=== PATIENT | female | born 2000 | race Caucasian/White ===

== ENCOUNTER 2024-08-23 19:33 | Emergency (ER) | payer OTHER, SELFPAY ==
[2024-08-23 19:36] VITALS: BP 108/70; PULSE 87; RESP 16; TEMP 37; O2SAT 98; BMI 26.6
[2024-08-23 20:05] LABS: Appearance Urine UA CLEAR; Bilirubin Urine UA NEGATIVE (NEGATIVE); Color Urine UA YELLOW; Glucose Urine UA NEGATIVE (Negative); Ketones Urine UA NEGATIVE (NEGATIVE); Leukocyte Esterase Urine UA 1+ (NEGATIVE); Nitrite Urine UA NEGATIVE (Negative); Occult Blood Urine UA 2+ (Negative); Protein Urine UA NEGATIVE (Negative); Specific Gravity Urine UA 1.025 (1.000-1.035); Urobilinogen Urine UA 0.2 E.U./dL (0.2)
[2024-08-23 20:19] LABS: Bacteria Urine Many (>30); Culture Indicated Urine Specimen Cultured; RBC Urine 0-1/HPF (0-5/HPF); Squamous Epithelial Cell Urine 1-5 /HPF (0-5/HPF); Urine Volume 10mL (spun); WBC Urine 1-5/HPF (0-5/HPF)
[2024-08-23 21:56] LABS: Add Manual Diff / Slide Review NO; Basophils Absolute Auto 100 /uL (0-100); Basophils Percent Auto 0.7 % (0-2); Eosinophils Absolute Auto 300 /uL (0-450); Eosinophils Percent Auto 4.5 % (2-4); Hematocrit 37.6 % (36-46); Hemoglobin 12.2 g/dL (12.0-16.0); Lymphocytes Absolute Auto 1900 /uL (1100-4500); Lymphocytes Percent Auto 25.3 % (25-40); Mean Corpuscular HGB Conc 32.5 % (30-36); Mean Corpuscular Hemoglobin 28.1 PG (26-34); Mean Corpuscular Volume 86.5 fL (80-100); Monocytes Absolute Auto 900 /uL (0-900); Monocytes Percent Auto 11.8 % (3-14); Neutrophils Absolute Auto 4300 /uL (1500-7000); Neutrophils Percent Auto 57.7 % (50-75); Platelet Count 299 X10^3/uL (150-400); Red Blood Cell Count 4.35 X10^6/uL (4.0-5.2); Red Cell Distribution Width 13.5 % (11.6-14.8); White Blood Cell Count 7.5 X10^3/uL (4.5-11.0)
[2024-08-23 22:02] LABS: Alanine Aminotransferase 24 IU/L (<35); Albumin 4.1 g/dL (3.5-5.0); Albumin Globulin Ratio 1.1 (1.0-2.8); Alkaline Phosphatase 76 U/L (38-126); Aspartate Aminotransferase 25 IU/L (14-36); BUN Creatinine Ratio 17.9 (6-22); Bilirubin Total 0.3 mg/dL (0.2-1.3); Blood Urea Nitrogen 14 mg/dL (7-17); Calcium 8.7 mg/dL (8.4-10.2); Carbon Dioxide 24 mmol/L (22-32); Chloride 105 mmol/L (98-107); Estimated Glomerular Filt Rate > 60 mL/min (>60); Globulin 3.9 g/dL (1.7-4.1); Glucose 105 mg/dL (70-100); HEMOLYSIS < 15 (0-50); Lipase 103 U/L (23-300); Potassium 3.6 mmol/L (3.4-5.1); Sodium 135 mmol/L (137-145)
--- NOTE | 2024-08-23 22:14 | ED.GENADULT ---
HPI - General Adult General Chief complaint: Abdominal Pain Stated complaint: thinks she is Time Seen by Provider: 08/23/24 22:13 Source: patient Mode of arrival: Ambulatory History of Present Illness HPI narrative: 24-year-old female has pre of prior urinary infection two years ago, has irregular periods, last period over 4 weeks ago, not currently having vaginal bleeding, but one-week duration of suprapubic area discomfort. Some dysuria frequency of urination. No nausea or vomiting. No fevers or chills. No flank or back pain symptoms. She does not have diarrhea, or black/red stools. No injury trauma or new activities. Denies vaginal bleeding. Denies vaginal discharge. She has not currently on any antibiotics, has not recently been taking any antibiotics. She had some concerns that she might be , due the irregularity of her periods. Related Data Previous Rx's Medication Instructions Recorded cephalexin 500 mg capsule 500 mg PO QID 5 days #20 caps 08/23/24 phenazopyridine 200 mg tablet 200 mg PO TID PRN pain #10 tabs 08/23/24 (Pyridium) Allergies Allergy/AdvReac Type Severity Reaction Status Date / Time No Known Drug Allergies Allergy Verified 08/23/24 19:42 Patient History Social History Smoking Status: Never smoker Smoking Status: Never smoker Exam Narrative Exam Narrative: GENERAL: Well-developed patient, in mild distress. HEAD: Atraumatic. Normocephalic. EYES: Pupils equal round and reactive. Extraocular motions intact. No scleral icterus. No injection or drainage. ENT: Nose without bleeding, purulent drainage. Throat without erythema, tonsillar hypertrophy or exudate. Airway patent. NECK: Trachea midline. Non tender CARDIOVASCULAR: Regular rate and rhythm without murmurs, gallops, or rubs. RESPIRATORY: Clear to auscultation. Breath sounds equal bilaterally. No wheezes, rales, or rhonchi. GASTROINTESTINAL: Abdomen soft, non-tender, nondistended. EXTREMITIES: No edema or joint tenderness. BACK: Nontender without deformity or crepitance. No flank tenderness right or left side. NEURO: AOx3. Motor functions grossly nonfocal SKIN: No rash or erythema of visible areas Initial Vital Signs Initial Vital Signs: Vital Signs Temperature 98.6 F 08/23/24 19:36 Pulse Rate 87 08/23/24 19:36 Respiratory Rate 16 08/23/24 19:36 Blood Pressure 108/70 08/23/24 19:36 Pulse Oximetry 98 08/23/24 19:36 Oxygen Delivery Method Room Air 08/23/24 19:36 Course Orders Ordered: ED Orders 08/23/24 19:48 Urinalysis and Microscopic Stat Urine Culture Stat 08/23/24 21:38 Complete Blood Count AUTO DIFF Stat Comprehensive Metabolic Panel Stat Lipase Stat Discontinued Medications Cephalexin HCl (Cephalexin 250 Mg Capsule) 500 mg PO NOW ONE Stop: 08/23/24 22:16 Last Admin: 08/23/24 22:27 Dose: 500 mg Documented By: ANGIE Phenazopyridine HCl (Phenazopyridine 100 Mg Tablet) 200 mg PO NOW ONE Stop: 08/23/24 22:24 Last Admin: 08/23/24 22:26 Dose: 200 mg Documented By: ANGIE Vital Signs Vital signs: Vital Signs - 8 hr 08/23/24 22:37 Pulse Rate 89 Respiratory Rate 14 Blood Pressure 119/76 Pulse Oximetry 100 Oxygen Delivery Method Room Air Medical Decision Making Lab Data Lab results reviewed: Yes I reviewed the patient's lab results. Lab results narrative: White blood cell count 7500, hemoglobin 12.2, platelets adequate. Basic metabolic panel unremarkable. Liver functions and lipase normal. Urine test negative. Urinalysis with many bacteria, urine culture sent. 08/23/24 21:38 08/23/24 21:38 Labs: Lab Results 08/23/24 08/23/24 Range/Units 19:48 21:38 WBC 7.5 (4.5-11.0) X10^3/uL RBC 4.35 (4.0-5.2) X10^6/uL Hgb 12.2 (12.0-16.0) g/dL Hct 37.6 (36-46) % MCV 86.5 (80-100) fL MCH 28.1 (26-34) PG MCHC 32.5 (30-36) % RDW 13.5 (11.6-14.8) % Plt Count 299 (150-400) X10^3/uL Neut % (Auto) 57.7 (50-75) % Lymph % (Auto) 25.3 (25-40) % [place] % (Auto) 11.8 (3-14) % Eos % (Auto) 4.5 H (2-4) % Baso % (Auto) 0.7 (0-2) % Neut # (Auto) 4300 (0065-3690) /uL Lymph # (Auto) 1900 (2313-1753) /uL Towner # (Auto) 900 (0-900) /uL Eos # (Auto) 300 (0-450) /uL Baso # (Auto) 100 (0-100) /uL Sodium 135 L (137-145) mmol/L Potassium 3.6 (3.4-5.1) mmol/L Chloride 105 (98-107) mmol/L Carbon Dioxide 24 (22-32) mmol/L BUN 14 (7-17) mg/dL Creatinine 0.78 (0.52-1.04) mg/dL Estimated GFR > 60 (>60) mL/min BUN/Creatinine Ratio 17.9 (6-22) Glucose 105 H (70-100) mg/dL Calcium 8.7 (8.4-10.2) mg/dL Total Bilirubin 0.3 (0.2-1.3) mg/dL AST 25 (14-36) IU/L ALT 24 (<35) IU/L Alkaline Phosphatase 76 (38-126) U/L Total Protein 8.0 (6.3-8.2) g/dL Albumin 4.1 (3.5-5.0) g/dL Globulin 3.9 (1.7-4.1) g/dL Albumin/Globulin Ratio 1.1 (1.0-2.8) Lipase 103 (23-300) U/L Urine Color Yellow Urine Appearance Clear Urine pH 6.0 (4.5-8.0) Ur Specific [place] 1.025 (1.000-1.035) Urine Protein Negative (Negative) Urine Glucose (UA) Negative (Negative) g/dL Urine Ketones Negative (NEGATIVE) Urine Occult Blood 2+ H (Negative) Urine Nitrate Negative (Negative) Urine Bilirubin Negative (NEGATIVE) Urine Urobilinogen 0.2 (0.2) E.U./dL Ur Leukocyte Esterase 1+ H (NEGATIVE) Urine RBC 0-1/hpf (0-5/HPF) Urine WBC 1-5/hpf (0-5/HPF) Ur Squamous Epith Cells 1-5 /hpf (0-5/HPF) Urine Bacteria Many (>30) H (None) Ur Culture Indicated? Specimen cultured Vol Urine Centrifuged 10ml (spun) Point of Care Testing Test Results Negative Urine Dip Bedside Urine Glucose Negative Bedside Urine Bilirubin - Negative Bedside Urine Ketone - Negative Urine Specific [place] 1.015 Bedside Urine Occult Blood ++ Bedside Urine pH 6.0 Bedside Urine Protein - Negative Bedside Urine Urobilinogen - Negative Bedside Urine Nitrite - Negative Bedside Urine Leukocytes +/- 15 Esterase Point of care testing: Point of Care Testing Test Results Negative Urine Dip Bedside Urine Glucose Negative Bedside Urine Bilirubin - Negative Bedside Urine Ketone - Negative Urine Specific [place] 1.015 Bedside Urine Occult Blood ++ Bedside Urine pH 6.0 Bedside Urine Protein - Negative Bedside Urine Urobilinogen - Negative Bedside Urine Nitrite - Negative Bedside Urine Leukocytes +/- 15 Esterase MDM Narrative Medical decision making narrative: 24-year-old female with one-week duration of suprapubic area discomfort, some urinary frequency. No fevers or chills. Afebrile, sirs screen negative, no CVA region tenderness, no anterior abdominal tenderness on examination. Screening labs ordered from triage, unremarkable CBC and CMP and lipase. Urine negative. Urinalysis suspicious for urine infection, urine culture pending. Oral cephalexin, oral Pyridium. First doses given in the emergency department, further antibiotics oral course to be sent for her pharmacy, along with further doses Pyridium to use if needed. Encouraged to drink plenty of fluids. Take antibiotic as prescribed. Discharged home. Return precautions discussed Discharge Plan Departure Patient Disposition: Home Clinical Impression: Urinary tract infection Activity Restrictions/Additional Instructions: Lower abdominal discomfort for 1 week, no fever on triage, no fevers by history, no tenderness on abdominal examination or either flank. Screening labs sent from triage were unremarkable blood testing results. Urine test negative. Urinalysis suspicious for urinary tract infection, urine culture requested by protocol from laboratory. First dose of antibiotics cephalexin given in the emergency department, 1st dose of urinary analgesic Pyridium also given in the emergency department. Further prescription medication sent to your pharmacy. Take antibiotics as directed. Consider use of Pyridium in the next couple of days while antibiotics likely will clear the infection. Drink plenty of fluids. Take Tylenol as needed for discomfort. Recheck symptoms with your regular provider if not improving in the next 2-3 days. Return to this/nearest emergency department for any change worsening symptoms or any concerns prior Prescriptions: New cephalexin 500 mg capsule 500 mg PO QID 5 Days Qty: 20 0RF phenazopyridine [Pyridium] 200 mg tablet 200 mg PO TID PRN (Reason: pain) Qty: 10 0RF Stand Alone Forms: Patient Portal/API/Survey
[2024-08-23] MEDS: PHENAZOPYRIDINE 100 MG TABLET 200 MG PO (22:26)
[2024-08-23] MEDS: cephALEXin 250 MG CAPSULE 500 MG PO (22:27)
[2024-08-23 22:37] VITALS: BP 119/76; PULSE 89; RESP 14; O2SAT 100
== END 2024-08-23 22:37 | disposition home or self-care (01) ==
PROVIDERS: Emergency Provider Emergency Medicine
DX: N39.0 Urinary tract infection, site not specified (principal)
CPT/HCPCS: 36415; 80053; 81001; 81003; 81025; 83690; 85025; 87086; 99283; 99284